=== PATIENT | female | born 1945 | race Hispanic/Latino ===

== ENCOUNTER 2017-08-14 09:48 | Emergency (ER) | payer MEDICARE ==
[~2017-08-14] VITALS: Ht 162.6 cm; Wt 75.7 kg
[~2017-08-14 09:48] MED LIST: LEVOTHYROXINE100 MCG; NEXIUM40 MG; RANITIDINE; RANITIDINE HCL75 MG; SPIRONOLACTONE25 MG; VESICARE5 MG
--- NOTE | 2017-08-14 10:58 | Diagnostic Imaging Report ---
EXAMINATION: Head and face CT without contrast. HISTORY: Status post fall, head and facial trauma one day ago. Headache COMPARISON: None. TECHNIQUE: Multidetector axial images were obtained without contrast from the foramen magnum to the vertex and over the face. The images were reconstructed using brain and bone algorithms. Thin section brain images were reformatted into coronal and sagittal planes. Intravenous contrast: None. Head CT findings: Skull: No lytic or blastic lesions. No fractures. Parenchyma: Moderate confluent periventricular and lara radiata and anterior limb of internal capsules white matter hypodensities, most likely nonspecific chronic microvascular ischemic changes. Small cortical gliosis in the left superior precentral cortex may represent sequela from prior ischemia. No mass, hemorrhage or CT evidence of acute vascular insult. Brain volume: Normal for age. Ventricles: No hydrocephalus or displacement. Arteries: No density suggestive of thrombus. Dural sinuses: No abnormal density. Extra-axial spaces: No abnormal density. Foramen magnum: No mass, Chiari malformation, or basilar invagination. Sella: No obvious mass. Paranasal/mastoid sinuses: Imaged portions unremarkable. Face CT findings: Bones: Unremarkable. Facial soft tissues: Unremarkable. Orbits contents: Unremarkable. Paranasal sinuses and drainage pathways: Clear and patent. Postoperative changes in the bilateral ostiomeatal units which appear clear and open. Nasal septum and nasal cavities: Midline. Anatomic variations: No significant anatomic variations. Teeth: No acute abnormality of the visualized teeth. TMJs: Degenerative changes mainly on the right side. IMPRESSION: 1. No acute traumatic intracranial abnormalities, particularly no hemorrhage. 2. Moderate white matter chronic microvascular ischemic changes. 3. No acute facial fractures. Signed by: Dr. Juany Lambert M.D. on 08/14/2017 10:55 AM
--- NOTE | 2017-08-14 10:59 | Diagnostic Imaging Report ---
Exam: Left knee 3 views History: Pain and fall Comparison: None. Findings: No fracture or malalignment. Joint spaces preserved. No abnormal soft tissue calcification or soft tissue defect. Impression: No acute osseous abnormality Signed by: Dr. Laron Marie M.D. on 08/14/2017 10:55 AM
--- NOTE | 2017-08-14 11:06 | Diagnostic Imaging Report ---
EXAMINATION: CT of the cervical spine HISTORY:Status post fall, head and facial trauma one day ago. Headache COMPARISON:None available TECHNIQUE: Multidetector helical axial images were obtained without contrast from the foramen magnum to T1. The images were reconstructed using bone and soft tissue algorithms and were viewed in axial, sagittal and coronal planes. FINDINGS: Alignment:Normal alignment and lordosis. Mild S-shaped curvature. Soft tissues: Normal. Vertebrae: Normal height and density. No acute fracture, infection or neoplasm. Intervertebral disk degenerative changes: C1-C2: Degenerative changes without stenoses. C2-C3: Disc osteophyte and uncovertebral arthrosis without stenoses. C3-C4: Prominent facet arthroses with moderate left foraminal stenosis. Grade 1 anterolisthesis.. C4-C5: Disc osteophyte, uncovertebral and facet arthrosis. Moderately severe foraminal stenosis on the right. Month. Spinal canal stenosis. C5-C6: Disc osteophyte compresses formation, bilateral uncovertebral and facet arthrosis. Mild spinal canal and foraminal stenoses. C6-C7: Disc osteophyte complex formation, bilateral uncovertebral and facet arthrosis. Mild foraminal stenosis and minimal left. C7-T1: Normal. IMPRESSION: 1. No acute cervical spine postraumatic abnormalities. 2. Multilevel chronic degenerative changes as detailed above. Note: Acute postraumatic spinal cord, vascular or ligamentous injuries cannot be assessed by CT. Signed by: Dr. Juany Lambert M.D. on 08/14/2017 11:03 AM
== END 2017-08-14 12:13 | disposition home or self-care (01) ==
LOC: ER 09:48
DX: S00.83XA Contusion of other part of head, initial encounter (principal); S00.31XA Abrasion of nose, initial encounter; S80.212A Abrasion, left knee, initial encounter; S16.1XXA Strain of muscle, fascia and tendon at neck level, initial encounter; R51 Headache; W01.0XXA Fall on same level from slipping, tripping and stumbling without subsequent striking against object, initial encounter; Y93.01 Activity, walking, marching and hiking; Y92.511 Restaurant or cafe as the place of occurrence of the external cause
CPT/HCPCS: 70450; 70486; 72125; 99284

== ENCOUNTER → 2021-11-23 | Outpatient (CLI) | payer MEDICARE | LOC: DX 08:49 | PROVIDERS: ATTEND Internal Medicine Gastroenterology | DX: Z86.010 Personal history of colon polyps (principal) | CPT/HCPCS: 74270 ==

== ENCOUNTER 2023-01-13 15:23 | Observation (INO) | payer MEDICARE ==
[~2023-01-13] VITALS: Ht 162.6 cm; Wt 75.7 kg
[2023-01-13 16:04] LABS: BASOPHILS % 0.8 % (0.0-1.0); EOSINOPHILS # (AUTO) 0.3 (0.0-0.4); EOSINOPHILS % 5.6 % (0.0-6.0); HEMATOCRIT 40.3 % (34.2-44.1); HEMOGLOBIN 13.8 g/dL (12.0-16.0); LYMPHOCYTES % 20.7 % (18.0-39.1); MEAN CORPUSCULAR HEMOGLOBIN 29.6 pg (28-32); MEAN CORPUSCULAR HGB CONC 34.2 g/dL (31-35); MEAN CORPUSCULAR VOLUME 86.3 fL (81-99); MONOCYTES # (AUTO) 0.6 (0.2-0.8); MONOCYTES % 11.1 % (4.4-11.3); NEUTROPHILS # (AUTO) 3.1 (2.1-6.9); NEUTROPHILS % 61.6 % (38.7-80.0); PLATELET COUNT 150 x10e3/uL (140-360); RED BLOOD COUNT 4.67 x10e6/uL (3.6-5.1); RED CELL DISTRIBUTION WIDTH 14.4 % (11.7-14.4)
[2023-01-13 16:12] LABS: INR 0.99; PARTIAL THROMBOPLASTIN TIME 29.2 seconds (23.8-35.5); PROTHROMBIN TIME 13.6 seconds (11.9-14.5)
[2023-01-13 16:19] LABS: ALBUMIN/GLOBULIN RATIO 1.3 (0.8-2.0); ANION GAP 12.2 mmol/L (8-16); CALCIUM 8.6 mg/dL (8.4-10.2); CREATININE, SERUM 0.91 mg/dL (0.57-1.11); POTASSIUM 4.2 mmol/L (3.5-5.1)
[2023-01-13] MEDS ORDERED: Morphine 2mg Syringe 2 MG/ML SYR IV PRN (17:30)
[2023-01-13] MEDS ORDERED: ONDANSETRON HCL INJ 2MG/ML 2ML 2 MG/ML VIAL IV PRN (17:30)
[2023-01-13] MEDS: SODIUM CHLORIDE 0.9% 1000ML 1,000 ML IV SCH (19:34)
[2023-01-13] MEDS ORDERED: ACETAMINOPHEN 325 MG TAB PO PRN (19:45)
[2023-01-13] MEDS ORDERED: METOPROLOL TARTRATE INJ 1 MG/ML VIAL IV PRN (19:45)
[2023-01-13] MEDS ORDERED: MELATONIN 3 MG TAB PO PRN (19:45)
[2023-01-13] MEDS ORDERED: SIMETHICONE 80 MG CHEW PO PRN (19:45)
[2023-01-13] MEDS ORDERED: DOCUSATE SODIUM 100 MG CAP PO PRN (19:45)
[2023-01-13 20:15] LABS: CHOL/HDL RATIO 3.7 (3.0-3.6)
[2023-01-13] MEDS: ASPIRIN 325 MG TAB PO SCH (21:16)
[2023-01-13 21:30] VITALS: BP 152/91; PULSE 84; RESP 17; TEMP 97.6; O2SAT 94
[2023-01-13 23:00] VITALS: BP 135/87; PULSE 84; RESP 17; TEMP 97.6
[2023-01-14 01:17] VITALS: BP 145/92; PULSE 75; RESP 17; TEMP 98.1; O2SAT 100
[2023-01-14] MEDS: SODIUM CHLORIDE 0.9% 1000ML 1,000 ML IV SCH ×3 (04:19→16:26)
[2023-01-14 05:44] VITALS: BP 131/87; PULSE 81; RESP 17; TEMP 98.3; O2SAT 96
[2023-01-14 06:16] LABS: BASOPHILS % 0.9 % (0.0-1.0); EOSINOPHILS # (AUTO) 0.4 (0.0-0.4); EOSINOPHILS % 8.1 % (0.0-6.0); HEMATOCRIT 38.3 % (34.2-44.1); HEMOGLOBIN 12.9 g/dL (12.0-16.0); LYMPHOCYTES # (AUTO) 1.2 (1.0-3.2); LYMPHOCYTES % 26.7 % (18.0-39.1); MEAN CORPUSCULAR HEMOGLOBIN 29.5 pg (28-32); MEAN CORPUSCULAR HGB CONC 33.7 g/dL (31-35); MEAN CORPUSCULAR VOLUME 87.6 fL (81-99); MONOCYTES # (AUTO) 0.6 (0.2-0.8); MONOCYTES % 13.6 % (4.4-11.3); NEUTROPHILS # (AUTO) 2.2 (2.1-6.9); NEUTROPHILS % 50.5 % (38.7-80.0); PLATELET COUNT 122 x10e3/uL (140-360); RED BLOOD COUNT 4.37 x10e6/uL (3.6-5.1); RED CELL DISTRIBUTION WIDTH 14.1 % (11.7-14.4)
[2023-01-14 06:38] LABS: ALBUMIN 3.4 g/dL (3.5-5.0); ALBUMIN/GLOBULIN RATIO 1.2 (0.8-2.0); ANION GAP 10.7 mmol/L (8-16); CALCIUM 8.3 mg/dL (8.4-10.2); CREATININE, SERUM 0.78 mg/dL (0.57-1.11); POTASSIUM 3.7 mmol/L (3.5-5.1)
[2023-01-14] MEDS ORDERED: LEVOTHYROXINE SODIUM 100 MCG TAB PO SCH (07:30)
[2023-01-14 08:15] VITALS: BP 147/75; PULSE 78; RESP 18; TEMP 97.8; O2SAT 97
[2023-01-14 08:26] VITALS: BP 147/75; PULSE 78; RESP 18; TEMP 97.8; O2SAT 97
[2023-01-14] MEDS ORDERED: PANTOPRAZOLE SOD 40 MG TABEC PO SCH (09:00)
[2023-01-14] MEDS ORDERED: METOPROLOL SUCCINATE 25 MG TAB XL PO SCH (09:00)
[2023-01-14] MEDS: ASPIRIN 325 MG TAB PO SCH (09:12)
[2023-01-14] MEDS: APIXAB 2.5 MG TABLET PO SCH ×2 (09:14→16:25)
[2023-01-14] MEDS: CALCIUM CARBONATE 500 MG CHEWABLE TABS PO SCH ×3 (09:14→16:25)
[2023-01-14 11:39] VITALS: BP 140/72; PULSE 60; RESP 18; TEMP 98.1; O2SAT 97
[2023-01-14 15:57] VITALS: BP 149/79; PULSE 83; RESP 18; TEMP 98.1; O2SAT 98
[2023-01-14] MEDS ORDERED: ELIQUIS2.5 MG PO (16:14)
[2023-01-14] MEDS ORDERED: TOPROL XL25 MG PO (16:14)
[2023-01-14] MEDS ORDERED: Calcium Carbonate 500MG Chew PO (16:14)
== END 2023-01-14 17:55 | disposition home or self-care (01) ==
LOC: ER 15:40 → ERHOLD 17:33 → MED/SURG2 22:06
PROVIDERS: ADMIT Internal Medicine; ATTEND Internal Medicine
DX: I48.92 Unspecified atrial flutter (principal); I48.91 Unspecified atrial fibrillation; Z79.01 Long term (current) use of anticoagulants; R07.89 Other chest pain; K21.9 Gastro-esophageal reflux disease without esophagitis; E03.9 Hypothyroidism, unspecified; I10 Essential (primary) hypertension; Z11.52 Encounter for screening for COVID-19; Z86.73 Personal history of transient ischemic attack (TIA), and cerebral infarction without residual deficits; Z79.899 Other long term (current) drug therapy
CPT/HCPCS: 36415 ×2; 71045; 71046; 80053 ×2; 80061; 82550 ×2; 83880; 84484 ×2; 85025 ×2; 85610; 85730; 93005 ×2; 93306; 99284; G0378 ×2; J2270; J2405; J7030 ×2; S0164; U0002

== ENCOUNTER → 2024-03-01 | Outpatient (REF) | payer MEDICARE ==
[~2024-03-01] MED LIST changes: +AMIODARONE HCL200 MG PO; +Calcium Carbonate 500MG Chew PO; +ELIQUIS2.5 MG PO; +METOPROLOL TART50 MG PO; +TOPROL XL25 MG PO
== END ==
LOC: US 15:13
PROVIDERS: ATTEND Internal Medicine Gastroenterology
DX: R10.33 Periumbilical pain (principal)
CPT/HCPCS: 76700; 76856

== ENCOUNTER → 2024-04-23 | Outpatient (REF) | payer MEDICARE ==
[~2024-04-23] MED LIST changes: +DIATRIZOATE MEGL/DIATRIZOA SOD 30 ML BTL PO ONE
== END ==
LOC: CT 12:55
PROVIDERS: ATTEND Nurse Practitioner Family
DX: R10.33 Periumbilical pain (principal)
CPT/HCPCS: 74176; Q9963